=== PATIENT | female | born 1955 | race Caucasian/White ===

== ENCOUNTER 2017-08-13 10:04 | Emergency (ER) | payer BC, SELFPAY ==
[2017-08-13 10:05] VITALS: BP 124/60; PULSE 79; RESP 16; TEMP 35.8; O2SAT 96; BMI 32.3
--- NOTE | 2017-08-13 10:21 | ED.VISSUMM ---
- ER Visit Summary Date of Service: 08/13/17 Chief Complaint: [Right leg injury] History of Present Illness: The patient is a 61 F [] who presents the emergency department with a right leg injury she slipped down the strep and twisted her right leg. She has had extreme pain with weightbearing Physical Examination: [] Examination of the right lower extremity reveals no pain at the knee she has a mild amount of crepitus and swelling at the lateral distal lower leg she has 2+ DP pulses and no motor sensory deficits Test Results: [] Emergency Department Course and Treatment: [X-rays show nondisplaced spiral fracture of the distal fibula. Patient was placed in a posterior splint. She has crutches to use at home. She will follow-up with Dr. Randhawa. She will ice and elevate. She will be given Tylenol here. She was given Zofran and tramadol for home. She is given precautions for which to return.] Treatment Plan: [] Disposition: [disCharge] Impression: [Distal fibula fracture] This note was generated with [employer] dictation software. It may contain incorrect words, spelling, and punctuation that were not noted in review of the chart prior to signing ED Disposition - Plan for ED Patient: Chief Complaint: Lower Extremity Injury Referrals: Casey Paz MD [Primary Care Provider] -
--- NOTE | 2017-08-13 10:25 | RAD_ITS ---
STUDY: X-RAY - RIGHT ANKLE REASON FOR EXAM: Female, 61 years old. Injury, pain TECHNIQUE: 3 view(s) of the ankle. COMPARISON: None. FINDINGS: There is mildly displaced spiral fracture at the distal fibula. There is no osseous destruction. RAD/Ankle min 3 Views IMPRESSION: Mildly displaced spiral fracture, distal fibula Electronically Signed: Jeffrey Hodges MD at 10:49 EDT Tel , Service support ,
--- NOTE | 2017-08-13 10:48 | ED.DCSUM_ITS ---
- ER Visit Summary Date of Service: 08/13/17 Chief Complaint: [Right leg injury] History of Present Illness: The patient is a 61 F [] who presents the emergency department with a right leg injury she slipped down the strep and twisted her right leg. She has had extreme pain with weightbearing Physical Examination: [] Examination of the right lower extremity reveals no pain at the knee she has a mild amount of crepitus and swelling at the lateral distal lower leg she has 2+ DP pulses and no motor sensory deficits Test Results: [] Emergency Department Course and Treatment: [X-rays show nondisplaced spiral fracture of the distal fibula. Patient was placed in a posterior splint. She has crutches to use at home. She will follow-up with Dr. Randhawa. She will ice and elevate. She will be given Tylenol here. She was given Zofran and tramadol for home. She is given precautions for which to return.] Treatment Plan: [] Disposition: [disCharge] Impression: [Distal fibula fracture] This note was generated with [employer] dictation software. It may contain incorrect words, spelling, and punctuation that were not noted in review of the chart prior to signing ED Disposition - Plan for ED Patient: Chief Complaint: Lower Extremity Injury Referrals: Casey Paz MD [Primary Care Provider] -
--- NOTE | 2017-08-13 11:53 | ED.DEP ---
ED Disposition - Plan for ED Patient: Chief Complaint: Lower Extremity Injury Instructions: ED Fx Lower Ext Prescriptions: traMADol [Ultram] 50 mg PO Q6H PRN PRN #20 tablet PRN Reason: Pain Referrals: Efrain Randhawa DO [STAFF PHYSICIAN] -
[2017-08-13 12:03] VITALS: BP 135/76; PULSE 84; RESP 18
[2017-08-13] MEDS: Acetaminophen 500 MG Tablet 1000 MG PO (12:08)
== END 2017-08-13 12:10 | disposition home or self-care (01) ==
PROVIDERS: Emergency Provider Emergency Medicine; Family Provider Family Medicine; PCP Family Medicine
DX: S82.831A Other fracture of upper and lower end of right fibula, initial encounter for closed fracture (principal); K21.9 Gastro-esophageal reflux disease without esophagitis; Z79.899 Other long term (current) drug therapy; W10.9XXA Fall (on) (from) unspecified stairs and steps, initial encounter; Y93.01 Activity, walking, marching and hiking; Y92.009 Unspecified place in unspecified non-institutional (private) residence as the place of occurrence of the external cause; Y99.8 Other external cause status
CPT/HCPCS: 73610; 99283

== ENCOUNTER 2020-05-27 16:03 | Outpatient (RCR) | payer BC, SELFPAY ==
[2020-05-27] MEDS: COVID-19 VACC, MRNA(PFIZER)/PF 30 MCG/0.3 ML SYRINGE IM (09:58)
[2020-06-17] MEDS: COVID-19 VACC, MRNA(PFIZER)/PF 30 MCG/0.3 ML SYRINGE IM (09:39)
== END 2020-08-19 23:59 ==
LOC: IMMUN 16:03
PROVIDERS: PCP Family Medicine; Referring Provider Family Medicine; Visit Provider Family Medicine
DX: Z23 Encounter for immunization (principal)
CPT/HCPCS: 0001A; 0002A; 91300

== ENCOUNTER → 2021-03-11 | Outpatient (CLI) | payer BC, SELFPAY | END | disposition home or self-care (01) | LOC: LABSPEC 11:56 | PROVIDERS: PCP Family Medicine; Referring Provider Physician Assistant; Visit Provider Physician Assistant | DX: Z11.52 Encounter for screening for COVID-19 (principal) | CPT/HCPCS: 87635; U0005; U0003 ==

== ENCOUNTER 2024-08-02 10:05 | Emergency (ER) | payer MEDICARE, OTHER, SELFPAY ==
[2024-08-02 10:06] VITALS: BP 148/74; PULSE 71; RESP 15; TEMP 36.8; O2SAT 100; BMI 14.6
--- NOTE | 2024-08-02 10:22 | EKG12_ITS ---
Test Reason : Blood Pressure : */* mmHG Vent. Rate : 72 BPM Atrial Rate : 72 BPM P-R Int : 132 ms QRS Dur : 96 ms QT Int : 412 ms P-R-T Axes : 25 64 28 degrees QTcB Int : 451 ms Normal sinus rhythm Normal ECG Confirmed by KAY ACOSTA, KAVITA ([id number]), mapping editor YANIV LOPEZ ([id number]) on 08/07/2024 6:51:23 AM Referred By: GABRIELLA Confirmed By: KAVITA VILLANUEVA MD
--- NOTE | 2024-08-02 10:22 | CT_ITS ---
PROCEDURE: ABDOMEN/PELVIS W IV CONT ONLY 08/02/2024 REASON FOR EXAM: ABDOMINAL PAIN, UPPER ABDOMEN Severe abdominal pain. TECHNIQUE: Abdomen and pelvis CT with intravenous contrast. Coronal and Sagittal reconstruction series were provided. PATIENT PREPARATION: Per protocol ORAL CONTRAST TYPE: None. CONTRAST: Isovue-300 VOLUME: 100 mL One or more dose reduction techniques were used (e.g., Automated exposure control, adjustment of the mA and/or kV according to patient size, use of iterative reconstruction technique. RADIATION DOSE SUMMARY: CTDlvol: 17.5 mGy DLP: 1084.7 mGycm COMPARISON: None FINDINGS: Lung bases: Unremarkable Liver: Diffuse fatty infiltration. Gallbladder: Gallstones. Spleen: Borderline splenomegaly. Pancreas: Normal size without evidence of mass surrounding inflammation or ductal dilation. Adrenals: Unremarkable. Kidneys: Normal renal sizes. No hydronephrosis. 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 Bladder: Unremarkable Reproductive Organs: Calcified fibroid. Bilateral tubal ligation clips. Bowel: Colonic diverticulosis without diverticulitis.. Moderate-sized hiatal hernia. Appendix: Unremarkable Lymph nodes: Unremarkable. Vasculature: The abdominal aorta and IVC are normal. Peritoneum / Retroperitoneum: Small umbilical hernia. Bones: Prior left hip replacement. CT/Abdomen/Pelvis W IV Cont ONLY IMPRESSION: Fatty infiltration of the liver. Gallstones. Hiatal hernia. Borderline splenomegaly. Reading Location: [place] [id number]
--- NOTE | 2024-08-02 10:23 | EDS_ITS ---
HPI HPI - GI History of Present Illness Chief Complaint: Abd Pain Detail of Chief Complaint: Abdominal pain Informant: patient Narrative Narrative: Patient presents with abdominal pain that started suddenly about an hour ago. Patient describes sudden onset of severe upper abdomen pain. She describes it more as a pressure. She has history of GERD but states this was very different and had no burning in her chest. She denies any radiation of the pain. She had some mild nausea. She has not had recent illness. She denies fever. She ate a granola bar this morning and a cup of coffee. No history of gallbladder problems. She is never had pain like this before. Patient states her symptoms lasted about 45 minutes and on arrival to the emergency department they are resolved. [facility] Medical History Cancer Home Medications ?Medication ?Instructions ?Recorded ?Last Taken ?Type pantoprazole 40 mg tablet,delayed 40 mg PO DAILY 08/1308/12/17 History release Allergy/AdvReac Type Severity Reaction Status Date / Time codeine Allergy Intermediate Rash Verified 08/02/24 10:06 morphine Allergy Rash Verified 08/02/24 10:06 Family History Other Colon cancer Social History Smoking Status: Never smoker ROS ROS ED Review of Systems ROS Unobtainable: other Constitutional Constitutional ED: Reports lethargy; Denies chills, fever(s), sweats or weight loss Eyes Eyes: Denies blurry vision, change in vision or diplopia ENT ENT ED: Denies rhinorrhea or sore throat Cardiovascular Cardiovascular: Denies chest pain, orthopnea or racing heartbeat Respiratory/Chest Respiratory/Chest: Denies cough, dyspnea, dyspnea on exertion, orthopnea or sputum Gastrointestinal Gastrointestinal: Reports abdominal pain and nausea; Denies diarrhea or vomiting Genitourinary Genitourinary ED: Denies dysuria, hematuria or urinary frequency Musculoskeletal Musculoskeletal: Denies arthralgias, back pain, myalgias or neck pain Integumentary Denies abscess, Abrasions or rash Neurologic Neurologic: Denies headache(s) or weakness Psychiatric Psychiatric: Denies anxiety, depression or suicidal thoughts Endocrine Endocrinology: Denies polydipsia, polyphagia or polyuria Hematologic/Lymphatic Hematologic/Lymphatic: Denies easy bleeding, easy bruising or lymphadenopathy Allergic/Immunologic Allergic/Immunologic ED: Denies mouth swelling, tongue swelling or urticaria EXAM Physical Exam Const Vital Signs: 08/02/24 10:06 Temperature 98.2 F Temperature Source Oral Pulse Rate 71 Respiratory Rate 15 Blood Pressure 148/74 H Blood Pressure Mean 98 Pulse Ox 100 Oxygen Delivery Method Room Air Positive well nourished and well developed General Appearance ED: well developed and NAD HEENT Reports TM's clear and moist mucous membranes normocephalic and atraumatic; Negative for trauma or tenderness Tympanic Membrane ED: Yes TM's clear Eyes PERRL and EOMs intact bilaterally General Eye ED: Negative for pale conjunctiva or scleral icterus Neck no lymphadenopathy, supple and no JVD General: Negative for tenderness Chest Wall inspection of chest normal and palpation of chest normal Chest: Negative for tenderness Resp normal respiratory effort and clear to auscultation bilaterally Effort and Inspection: Negative for respiratory distress or pain with movement Auscultation: Negative for rhonchi, wheezes or diminished lung sounds Cardio regular rate, regular rhythm, S1 normal heart sound, S2 normal heart sound and no murmurs Peripheral Pulses: pulses 2+ throughout GI normal to inspection, nondistended, normoactive bowel sounds, soft to palpation, non-distended and no masses GI Narrative: Mild tenderness over the epigastric region with some guarding. There is no rebound, rigidity, or peritoneal signs. No masses palpated Back/Spine no CVA tenderness and no thoracic nor lumbar tenderness Extremity normal to inspection General Extremety ED: Negative for edema General Extremity: Negative for edema Neuro oriented x3, CN's II-XII intact bilaterally, no sensory deficits noted and gait normal Sensorium / Orientation: awake, alert, oriented to person, oriented to place and oriented to time Motor Exam: strength 5/5 throughout and strength abnormal Psych mental status grossly normal Skin no rashes or lesions noted and no wounds MDM MDM MDM Narrative Medical decision making narrative: Patient presents to the emergency department sudden onset of upper abdomen pain and sore about an hour prior to coming in and resolved about 15 minutes prior to coming in. She presents via EMS. Denying any chest pain. She has not had pain like that before. Clinically looks well but has some mild tenderness over the epigastric region. IV line established. EKG obtained on arrival shows sinus rhythm with rate of 72 bpm with no acute ST segment changes. CBC with differential showed normal white count of 8.5 with hemoglobin 13.9 and platelet count of 170. Chemistries were unremarkable. Lactate normal at 1.6. AST minimally elevated at 57 however her ALT was 31 and alk phos was 98. Urinalysis was normal. CT scan of the M pelvis with IV contrast showed some incidental findings of a hiatal hernia as well as gallstones without evidence of cholecystitis. Patient also had a myolipoma of the right kidney. Discussed results with patient. She is continuing to be pain-free. This point etiology of her pain unclear although in the differential certainly is pain related to gallstones versus discomfort related to hiatal hernia or possibly gastritis/GERD. Recommend follow-up with primary care physician within next 3 to 5 days. She is advised to avoid spicy and greasy foods. She is to return if worsening pain, fever, vomiting, or condition should worsen anyway. Lab Data Attestation: I reviewed the patient's lab results. Labs: Laboratory Results - last 24 hr 08/02/24 08/02/24 08/02/24 10:11 10:26 11:03 WBC 8.5 RBC 4.70 Hgb 13.9 Hct 40.7 MCV 86.6 MCH 29.6 MCHC 34.2 RDW Std Deviation 42.1 RDW Coeff of Sofia 13.3 Plt Count 170 MPV 10.1 Immature Gran % (Auto) 0.400 Neut % (Auto) 51.8 Lymph % (Auto) 40.1 [place] % (Auto) 6.2 Eos % (Auto) 1.1 Baso % (Auto) 0.4 Absolute Neuts (auto) 4.4 Absolute Lymphs (auto) 3.41 Nucleated RBC % 0 Sodium 141 Potassium 3.6 Chloride 104 Carbon Dioxide 21.6 Anion Gap 15 BUN 18 Creatinine 1.08 Estim Creat Clear Calc 31.92 L Est GFR (MDRD) Non-Af 56 L BUN/Creatinine Ratio 16.3 Glucose 132 H Lactic Acid 1.6 Calcium 9.8 Total Bilirubin 0.62 AST 57 H ALT 31 Alkaline Phosphatase 98 Troponin T High Sens 8 Total Protein 6.7 Albumin 4.2 Globulin 2.5 Albumin/Globulin Ratio 1.7 Lipase 23 Urine Color Yellow Urine Clarity Sl. Cloudy Urine pH 8.0 Ur Specific [place] 1.010 Urine Protein 30 H Urine Glucose (UA) Normal Urine Ketones Negative Urine Occult Blood Negative Urine Nitrite Negative Urine Bilirubin Negative Urine Urobilinogen Normal Ur Leukocyte Esterase Negative Urine RBC 0 SEEN Urine WBC 0 SEEN Ur Squamous Epith Cells 0 SEEN Urine Bacteria 0 SEEN Urine Mucus 0 SEEN Radiography Diagnostic Testing: Clinical Impression(s) from Imaging Studies Abdomen/Pelvis CT 08/02/24 10:22 IMPRESSION: Fatty infiltration of the liver. Gallstones. Hiatal hernia. Borderline splenomegaly. Reading Location: [place] [id number] EKG Initial EKG: Attestation: I personally reviewed and interpreted this EKG as follows: Comments: Sinus rhythm with rate of 72 bpm with no acute ST segment change Discharge Plan Triage Chief Complaint: Abd Pain ED Provider: Amina Rod Dx/Rx/DC Orders Clinical Impression: Abdominal pain, Gallstones, Hiatal hernia Instructions: ED Abdominal Pain Unkn Cause Fem, ED Gallstones with Biliary Colic, ED Hiatal Hernia Prescriptions: No Action pantoprazole 40 MG tablet 40 mg PO DAILY Primary Care Provider: Casey Paz Referrals: Casey Paz MD [Primary Care Provider] - 3-5 Days Print Language: Kyrgyz Disposition Disposition: Home, Self Care
[2024-08-02 10:42] LABS: Absolute Lymphocyte Count 3.41 X10^3/uL (0.83-4.51); Absolute Neutrophil Count 4.4 X10^3/uL (2.0-7.7); Basophil# 0.03 X10^3/uL; Basophil% 0.4 % (0-1); Eosinophil# 0.09 X10^3/uL; Eosinophils% 1.1 % (0-5); Hematocrit 40.7 % (37-47); Hemoglobin 13.9 g/dL (12.0-15.0); Lymphocyte # 3.41 X10^3/ul (0.83-4.51); Lymphocyte % 40.1 % (19-41); Mean Corp Hgb Conc 34.2 g/dL (32-36); Mean Corpuscular Hgb 29.6 pg (27.0-32.0); Mean Corpuscular Volume 86.6 fL (81-99); Mean Platelet Vol. 10.1 fl (6.2-12.0); Monocyte# 0.53 X10^3/uL; Monocyte% 6.2 % (0-10); NRBC Flagged by Analyzer 0 % (0-5); Neutrophil # 4.41 X10^3/uL (2.7-7.7); Neutrophil % 51.8 % (47-70); Platelet Count 170 K/mm3 (150-450); RBC Distribution Width CV 13.3 % (11.6-14.6); RBC Distribution Width SD 42.1 fl (35.1-43.9); White Blood Count 8.5 K/mm3 (4.4-11.0)
[2024-08-02] MEDS: 0.9% Normal Saline (1000mL) 1,000 ML 125 ML IV (10:47)
[2024-08-02 11:13] LABS: Lactic Acid 1.6 mmol/L (0.0-2.0)
[2024-08-02 11:18] LABS: Bacteria 0 SEEN /hpf (None Seen); Mucous, Urine 0 SEEN /hpf (<or=2+); Red Blood Cells-Urine 0 SEEN /hpf (0-5); Squamous Epithelial Cells - UA 0 SEEN /hpf (5-10); White Blood Cells 0 SEEN /hpf (0-5)
[2024-08-02 11:36] LABS: ALB/GLOB Ratio 1.7 RATIO (0.9-2.4); AST(SGOT) 57 U/L (<=31); Alanine Aminotransfer ALT/SGPT 31 U/L (<=34); Albumin, Serum 4.2 g/dL (3.4-4.8); Alkaline Phosphatase 98 U/L (35-104); Anion Gap 15 (5-15); BUN 18 mg/dL (4-19); BUN/Creat Ratio 16.3 RATIO (10-20); Calcium,Total 9.8 mg/dL (7.6-11.0); Carbon Dioxide 21.6 mmol/L (21.0-32.0); Chloride 104 mmol/L (98-108); Creatinine, Serum 1.08 mg/dL (0.70-1.20); EST Glomerular Filtration Rate 56 (>60); Estimated Creatinine Clearance 31.92 ml/min (50-250); Globulin 2.5 g/dL (2.2-4.2); Glucose 132 mg/dL (70-99); Lipase 23 U/L (13-75); Potassium 3.6 mmol/L (3.3-5.1); Protein, Total 6.7 g/dL (5.9-8.4); Sodium Level 141 mmol/L (133-145); Total Bilirubin 0.62 mg/dL (0.00-1.30)
[2024-08-02 11:37] LABS: Troponin T High Sensitivity 8 ng/L (<=14)
[2024-08-02 11:42] LABS: Color, Urine Yellow (Yellow); Glucose, Dipstick Normal (Normal); Ketone-Dipstick Negative (Negative); Leukocyte Esterase-Dipstick Negative /ul (Negative); Nitrite-Dipstick Negative (Negative); Occult Blood-Urine Negative /ul (Negative); Protein-Dipstick 30 mg/dl (Negative); Urine Bilirubin Dipstick Negative (Negative); Urine Clarity Sl. Cloudy (Clear); Urine Urobilinogen Normal (Normal)
[2024-08-02 12:46] VITALS: BP 140/72; PULSE 76; RESP 16; TEMP 36.5; O2SAT 100
== END 2024-08-02 12:47 | disposition home or self-care (01) ==
PROVIDERS: Emergency Provider Emergency Medicine; PCP Family Medicine; Visit Provider Emergency Medicine
DX: R10.9 Unspecified abdominal pain (principal); K44.9 Diaphragmatic hernia without obstruction or gangrene; K80.20 Calculus of gallbladder without cholecystitis without obstruction; K21.9 Gastro-esophageal reflux disease without esophagitis; D17.71 Benign lipomatous neoplasm of kidney
CPT/HCPCS: 74177; 80053; 81001; 83605; 83690; 84484; 85025; 93005; 96360; 96361; 99285; Q9967; A4216